=== PATIENT | female | born 1990 | race African-American/Black ===

== ENCOUNTER 2018-12-15 14:39 | Emergency (ER) | payer SELFPAY ==
[~2018-12-15] VITALS: Ht 175.3 cm; Wt 81.8 kg
[2018-12-15] MEDS ORDERED: ALBU8HFA IH (15:03)
[2018-12-15 15:59] VITALS: BP 130/80
[2018-12-15] MEDS ORDERED: KETOROLAC TROMETHAMINE 30 MG/ML VIAL IM ONE (16:00)
== END 2018-12-15 17:02 | disposition home or self-care (01) ==
LOC: EMS 14:42
DX: S92.511A Displaced fracture of proximal phalanx of right lesser toe(s), initial encounter for closed fracture (principal); F41.9 Anxiety disorder, unspecified; Z79.899 Other long term (current) drug therapy; W22.01XA Walked into wall, initial encounter; Y93.89 Activity, other specified; Y92.89 Other specified places as the place of occurrence of the external cause; Y99.8 Other external cause status
CPT/HCPCS: 73630; 96372; 99283; J1885